=== PATIENT | female | born 1995 | race Caucasian/White ===

== ENCOUNTER 2018-08-07 07:43 | Inpatient (IN) ==
[2018-08-07] MEDS ORDERED: miSOPROStol 25 MCG TABLET VG PRN (07:49)
[2018-08-07] MEDS ORDERED: Famotidine 20 MG/2 ML VIAL IVP PRN (07:49)
[2018-08-07] MEDS ORDERED: Ondansetron 4 MG/2 ML VIAL IVP PRN (07:49)
[2018-08-07] MEDS ORDERED: Naloxone 0.4 MG/ML INJ IVP PRN (07:49)
[2018-08-07] MEDS ORDERED: *HR* Nalbuphine 10 MG/ML AMPUL IVP PRN (07:49)
[2018-08-07] MEDS ORDERED: miSOPROStol 25 MCG TABLET PO SCH (08:00)
[2018-08-07] MEDS ORDERED: Ringers Solution, Lactated 1,000 ML IVC SCH (08:00)
[2018-08-07 08:22] LABS: Basophils % 0.4 %; Eosinophils # 0.1 K/mcL (0.0-0.6); Eosinophils % 1.1 %; Hemoglobin 12.2 g/dL (11.5-15.4); Immature Granulocytes % 0.8 % (0-4); Lymphocytes # 1.1 K/mcL (0.6-4.6); Lymphocytes % 10.8 %; Mean Corpuscular HGB Conc 33.9 g/dL (31.6-35.5); Mean Corpuscular Hemoglobin 29.5 pg (28.0-33.3); Mean Corpuscular Volume 87.2 fL (83.0-100.0); Mean Platelet Volume 10.6 fL (9.4-12.4); Monocytes # 0.6 K/mcL (0.0-1.3); Monocytes % 6.2 %; Neutrophils # 7.8 K/mcL (1.6-8.9); Platelet Count 158 K/mcL (140-400); Red Blood Count 4.13 M/mcL (3.82-4.97); Segmented Neutrophils % 80.7 %
[2018-08-07 08:24] LABS: Amphetamine Screen,Urine Negative ng/mL (Cutoff=1000); Barbiturate Screen,Urine Negative ng/mL (Cutoff=200); Benzodiazepines Screen,Urine Negative ng/mL (Cutoff=200); Cannabinoid Screen,Urine Negative ng/mL (Cutoff = 50); Cocaine Screen,Urine Negative ng/mL (Cutoff= 300); Opiate Screen,Urine Negative ng/mL (Cutoff=300); Phencyclidine Screen,Urine Negative ng/mL (Cutoff=25)
--- NOTE | 2018-08-07 09:28 | OB/GYN History & Physical ---
Date of Encounter: 08/07/18 Time of Encounter: 09:24 Assessment and Plan (1) 39 weeks gestation of Current visit: Yes Status: Acute Admit for elective IOL GBS negative Cytotec Consider AROM and/or pitocin for augmentation Patient may have nubain/epidural upon request for pain control Anticipate vaginal discharge POC per consult with Dr Gary History of Present Illness Chief complaint: IOL HPI: Ms. Ward is a 23 year old at 39 weeks and 0 days that presents to triage for an elective induction of labor with a favorable cervix. She has had a normal course and was seen by the [facility] for her . She states positive movement. She denies headache, vision changes, epigastric pain, leaking of fluid, vaginal bleeding, and contractions Labs: GBS negative RPR NR Hep B Neg Rubella Immune HIV NR BLood type A+ Past Med Surg Social Fam HX - Past Medical History Medical history: migraine Psychiatric history: no psych history - Past Surgical History Additional surgical history: Tonsillectomy, wisdom teeth removal - Social History Smoking Status: Never smoker Smokeless Tobacco Status: No Alcohol use: none Drug use: none - Family History Mother Living Status: Still Living Hx Family Respiratory Disorders: Yes (seasonal allergies) Obstetrical History - Pregnancies : 2 Para: 1 Term: 1 : 0 Ab's: 0 Livin Medications and Allergies Ibuprofen [Motrin] 600 mg PO Q6HR PRN #24 tab 06/18/17 [Rx] Calcium Carbonate [Tums] 1 tab PO PRN PRN 08/07/18 [History] Ondansetron ODT [Zofran ODT] 4 mg SL Q6HR PRN 08/07/18 [History] Multi Tablet 1 tab PO DAILY 08/07/18 [History] 3 Allergy/AdvReac Type Severity Reaction Status Date / Time No Known Allergies Allergy Verified 05/30/18 03:25 Review of System OB All systems PM: reviewed and no additional remarkable complaints except as stated Exam - Constitutional Constitutional: well developed, well nourished, no acute distress, average body habitus - HEENT HEENT: Normocephaly, Mucus Membranes Moist - Lungs Respiratory exam: CTAB - Cardiovascular Cardiovascular exam: RRR, +S1, +S2 - Abdomen Abdomen: Present: bowel sounds normal, gravid, non tender - Extremities Extremities exam: normal capillary refill, normal inspection, radial pulses palpable and symmetrical - Cervix Dilation: 3 Effacement: 80 Station: -2 - Uterus Uterus exam: Present: normal size, normal contour Results Result Diagrams: 08/07/18 07:55 Abnormal lab results RDW 15.0 % (11.5-14.5) H 08/07/18 07:55 All other labs normal. - VTE Reasons for not Prescribing Prophylaxis: Treatment not Indicated - Low risk for VTE
--- NOTE | 2018-08-07 09:35 | Anesthesia Evaluation PreOp ---
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 Any Significant HX Other Medical History: Denies Any Significant HX Anesthesia History: No Prior Anesthetic Complications, Past Anesthesia : Yes (39 weeks, ) Alcohol Use: none Drug use: none Medications and Allergies Ibuprofen [Motrin] 600 mg PO Q6HR PRN #24 tab 06/18/17 [Rx] Calcium Carbonate [Tums] 1 tab PO PRN PRN 08/07/18 [History] Ondansetron ODT [Zofran ODT] 4 mg SL Q6HR PRN 08/07/18 [History] Multi Tablet 1 tab PO DAILY 08/07/18 [History] 3 Allergy/AdvReac Type Severity Reaction Status Date / Time No Known Allergies Allergy Verified 05/30/18 03:25 - Meds/Allergy Pre-op Review Medications Reviewed: Yes Allergies Reviewed: Yes Beta Blockers on Current Med List: No Anesthesia Results - Labs 08/07/18 07:55 Anesthesia Exam O2 Sat Height 1.75 m Height 1.75 m Weight 75.3 kg Weight 75.3 kg Height: 69 Weight: 75 - HEENT Pupil (Motor): Pupils equal Mallampati: II Teeth: Normal Oral Opening: Greater than 3 - STRIKE OFF MACHINE OPERATOR LOC: Oriented STRIKE OFF MACHINE OPERATOR Motor: Normal RUE, Normal LUE, Normal RLE, Normal LLE, Normal Face STRIKE OFF MACHINE OPERATOR Sensory: Normal: RUE, LUE, RLE, LLE, Face - Cardiac Rhythm: Regular Murmur: None JVD: No Carotid Bruit: No - Pulmonary Breath Sounds: bilateral Clear Respiratory Effort: Symmetrical Anesthesia Assess/Plan ASA Score: 2 Modified [place] Scale for Level of Consciousness: Cooperative, oriented, and tranquil Anesthetic Plan: Regional Monitoring Plan: Standard Monitors
[2018-08-07] MEDS ORDERED: Bupivacaine-MPF 0.25% 10 ML VIAL ONE (10:01)
[2018-08-07] MEDS ORDERED: *HR* FentaNYL (PF) 100 MCG/2 ML VIAL ONE (10:01)
[2018-08-07] MEDS ORDERED: Lidocaine -MPF 1% 5 ML AMPUL ONE (10:02)
[2018-08-07] MEDS ORDERED: Epidural Premix (fent/bupiv) 110 ML EP ONE (10:22)
[2018-08-07] MEDS ORDERED: EPHEDrine 50 MG/ML VIAL IVP PRN (10:28)
[2018-08-07] MEDS ORDERED: Bupivacaine-MPF 0.25% 10 ML VIAL EP ONE (10:28)
[2018-08-07] MEDS ORDERED: *HR* FentaNYL (PF) 100 MCG/2 ML VIAL EP ONE (10:28)
[2018-08-07] MEDS ORDERED: Epidural Premix (fent/bupiv) 110 ML EP SCH (10:30)
--- NOTE | 2018-08-07 10:33 | Anesthesia Procedures ---
Date of Encounter: 08/07/18 Time of Encounter: 10:30 Procedures: Anesthesia - Epidural/Spinal Patient ID/Chart reviewed: Yes Patient examined: Yes OB Eval: Gestational age: 39 OB Eval: : 2 OB Eval: Hx Para: 1 OB Eval: Contractions: Non-stressed pattern Consent Obtained: Yes Supplemental Oxygen: None/Room Air Site Prep: Aseptic Technique Patient position: upright Local Anesthetic: Lidocaine 1% Amount of Local Anesthetic used: 3 Touhy Needle Gauge: 18 Touhy Needle Depth (cm): 4 Test Dose (1.5% Lido + Epi): Volume given (mls): 3 Test Dose Result: Negative Loading Dose: 0.25% Marcaine (mls): 1 Loading Dose: Fentanyl (mcg): 25 Infusion Med: 0.125% Bupivacaine w/ 2 mcg/ml Fentanyl Infusion Rate (mls/hr): [address]: Tegaderm Interspace Used: L3-L4 Loss of Resistance (VILMA): Yes Blood: No Procedure: CSEA L3-4 x 1 attempt aseptically. 27 g pencil point thru epidural needle, distinct pop felt and CSF clear. 25mcg fentanyl and 1cc 0.25% bupivicaine thru spinal needle prior to removing and inserting epidural cathetar to 10cm. Test dose negative through catheter and gtt started at 14cc/hr. FHR unchanged post procedure.
[2018-08-07] MEDS ORDERED: 0.9 % Sodium Chloride 1,000 ML ONE (13:48)
--- NOTE | 2018-08-07 14:04 | OB Labor Progress Note ---
Date of Encounter: 08/07/18 Time of Encounter: 14:02 Labor Progress Note - Subjective Subjective: Patient is resting comfortably in bed. Pain is well controlled with epidural. FHR - variables with each contraction noted. - Vital Signs Vital Signs: VSS - Cervix Cervix: 4-5/80/-2 - Heart Tones Heart Tones: Baseline 130 with moderate variability and variables with each contraction; category II - [place]: Contractions every 2-3 minutes lasting 45-65 seconds - Interventions Interventions: AROM for moderate amount of clear fluid, IUPC, and FSE placed without difficulty. Amnioinfusion started with 500cc bolus. Patient and fetus tolerated well. - Plan Plan: Continue routine labor management GBS negative Continue amnioinfusion Consider discontinuing amnioinfusion after return to category I tracing Anticipate vaginal delivery POC per consult with Dr Gary; discussed category II tracing with Dr Gary
[2018-08-07] MEDS ORDERED: Terbutaline 1 MG/ML VIAL SQ ONE (15:24)
[2018-08-07] MEDS ORDERED: Oxytocin 20 units/ LR 1000 mL 20 UNIT/1,000 ML BAG IVC ONE ×2 (15:29→19:37)
--- NOTE | 2018-08-07 17:16 | Event Note ---
Date of Encounter: 08/07/18 Time of Encounter: 15:45 Category II tracing noted not resolved with intrauterine resuscitation; terbutaline given - Dr Gary called to bedside to evaluate. Cervical massage initiated.
--- NOTE | 2018-08-07 17:19 | OB/GYN Procedure Note ---
Delivery - Delivery Date: 08/07/18 Provider: Kayla Juárez Intrapartum events: none Delivery induction: misoprostol Delivery augmentation: rupture of membranes Delivery monitor: external FHT, external uterine, internal FHT, internal uterine Anesthesia: epidural Quantitated Blood Loss: 350 - (s) Infant A Infant Delivery Date: 08/07/18 Infant Delivery Time: 16:24 Presentation: vertex Position: ANNELISE Route of delivery: Gender: Male Viability: Viable Pounds: 7 Ounces: 1 Weight Gram: 3.21 kg at 1 minute: 8 at 5 mins: 9 Shoulder Dystocia: not encountered Specimens collected: cord blood Placenta: spontaneous Cord: 3 umbilical vessels, nuchal cut, delivered through nuchal - Repair Episiotomy: none Laceration Description: Superficial - Complications Delivery complications: none Delivery comments: Patient progressed to of viable, vigorous male infant in the NIKOS position. Loose nuchal cord encountered, delivered through. No meconium, no shoulder dystocia encountered. Infant placed on maternal abdomen, warmed, dried, and stimulated. Cord double clamped and cut after pulsations ceased with assistance of grandmother of baby. Placenta delivered spontaneously and appears grossly intact; 3 vessel cord. Upon perineal inspection, bilateral superficial labial lacerations noted. Left labial laceration was not hemostatic as the other lacerations were, figure of 8 used to provide hemostasis to both apexes of laceration. 3-0 monocryl used. Fundus firm at U/ 2 with scant bleeding after repair completed. EBL 350mL. Delivery assisted by Faye Cerda DO, PGY-1. Dr Gary notified of delivery. Mother and stable in recovery. - Disposition Mom disposition: stable in LDR [place] disposition: stable in LDR
[2018-08-07] MEDS ORDERED: Acetaminophen 325 MG TABLET PO PRN (19:37)
[2018-08-07] MEDS ORDERED: Oxytocin 20 units/ LR 1000 mL 20 UNIT/1,000 ML BAG IVC SCH (19:37)
[2018-08-07] MEDS ORDERED: Benzocaine/Menthol 56 GM AEROSOL SPRAY TP PRN (19:37)
[2018-08-07] MEDS ORDERED: Measles/Mumps/Rubella Vacc 0.5 ML VIAL SQ PRN (19:37)
[2018-08-07] MEDS ORDERED: Ondansetron ODT 4 MG TAB.RAPDIS SL PRN (19:37)
[2018-08-07] MEDS: Ibuprofen 600 MG TABLET PO PRN (20:07)
[2018-08-08 04:36] LABS: Basophils % 0.3 %; Eosinophils # 0.1 K/mcL (0.0-0.6); Eosinophils % 1.1 %; Hematocrit 28.8 % (35.3-44.9); Hemoglobin 9.7 g/dL (11.5-15.4); Immature Granulocytes % 0.7 % (0-4); Lymphocytes # 1.3 K/mcL (0.6-4.6); Mean Corpuscular HGB Conc 33.7 g/dL (31.6-35.5); Mean Corpuscular Hemoglobin 29.7 pg (28.0-33.3); Mean Corpuscular Volume 88.1 fL (83.0-100.0); Mean Platelet Volume 10.7 fL (9.4-12.4); Monocytes # 1.1 K/mcL (0.0-1.3); Monocytes % 8.7 %; Neutrophils # 9.4 K/mcL (1.6-8.9); Platelet Count 139 K/mcL (140-400); Red Blood Count 3.27 M/mcL (3.82-4.97); Red Cell Distribution Width 14.9 % (11.5-14.5); Segmented Neutrophils % 78.2 %
[2018-08-08] MEDS: Ibuprofen 600 MG TABLET PO PRN ×2 (05:35→17:22)
[2018-08-08] MEDS ORDERED: Prenatal Vit/FA 1 EACH TABLET PO SCH (09:00)
--- NOTE | 2018-08-08 09:32 | Discharge Summary ---
Date of Encounter: 08/08/18 Time of Encounter: 09:26 - Discharge Diagnosis (1) Vaginal delivery Priority: Primary Status: Acute Comments: Feeling well Pain well controlled with by mouth pain meds Tolerating regular diet Voiding independently Lochia light Passing flatus, no BM yet Ambulating independently Vital signs stable Discharge home today (2) anemia Priority: Secondary Status: Acute Comments: Continue iron supplementation daily for 3 months (3) Breast feeding status of mother Priority: Secondary Status: Acute Comments: Community resources provided - Discharge Medications Prescriptions: Ibuprofen [Motrin] 600 mg PO Q6HR PRN #30 tablet PRN Reason: Cramping Docusate [Colace] 100 mg PO BID #60 capsule Ferrous Sulfate 325 mg PO DAILY #30 tablet Home Medications: Multi Tablet 1 tab PO DAILY 08/07/18 [History] Acetaminophen [Tylenol] 650 mg PO Q6HR PRN tablet 08/08/18 [Rx] Benzocaine/Menthol Lindsay [Dermoplast Lindsay] 1 appl TP QID PRN aerosol 08/08/18 [Rx] Docusate [Colace] 100 mg PO BID #60 capsule 08/08/18 [Rx] Ferrous Sulfate 325 mg PO DAILY #30 tablet 08/08/18 [Rx] Ibuprofen [Motrin] 600 mg PO Q6HR PRN #30 tablet 08/08/18 [Rx] Allergies/Adverse Reactions: 3 Allergy/AdvReac Type Severity Reaction Status Date / Time No Known Allergies Allergy Verified 05/30/18 03:25 Data Procedures and tests throughout hospitalization: Laboratory Tests 08/07/18 08/07/18 08/08/18 07:55 08:02 04:13 WBC 9.7 12.0 H RBC 4.13 3.27 L Hgb 12.2 9.7 L D Hct 36.0 28.8 L MCV 87.2 88.1 MCH 29.5 29.7 MCHC 33.9 33.7 RDW 15.0 H 14.9 H Plt Count 158 139 L MPV 10.6 10.7 Immature Gran % 0.8 0.7 Seg Neutrophils % 80.7 78.2 Lymphocytes % 10.8 11.0 Monocytes % 6.2 8.7 Eosinophils % 1.1 1.1 Basophils % 0.4 0.3 Neutrophils # 7.8 9.4 H Lymphocytes # 1.1 1.3 Monocytes # 0.6 1.1 Eosinophils # 0.1 0.1 Basophils # 0.0 0.0 Urine Opiates Screen Negative Ur Barbiturates Screen Negative Ur Phencyclidine Scrn Negative Ur Amphetamines Screen Negative U Benzodiazepines Scrn Negative Urine Cocaine Screen Negative U Marijuana (THC) Screen Negative Ur Drug Screen Interp See Below Labs on day of discharge: Labs from last 24 hours 08/08/18 04:13 WBC 12.0 H RBC 3.27 L Hgb 9.7 L D Hct 28.8 L MCV 88.1 MCH 29.7 MCHC 33.7 RDW 14.9 H Plt Count 139 L MPV 10.7 Immature Gran % 0.7 Seg Neutrophils % 78.2 Lymphocytes % 11.0 Monocytes % 8.7 Eosinophils % 1.1 Basophils % 0.3 Neutrophils # 9.4 H Lymphocytes # 1.3 Monocytes # 1.1 Eosinophils # 0.1 Basophils # 0.0 Date of admission: 08/07/18 07:43 Primary care physician: Nevaeh Cisse Consults: 08/07/18 19:37 Consult to Fitting Room Inspector [CONS] Routine Comment: Vaginal delivery, consult needed Discharging clinician: Kayla Trevino Anticipated date of discharge: 08/08/18 - Patient Status Disposition: Home, Self-Care Condition: Good Functional capacity at discharge: independent ambulation Overall status at discharge: patient is progressing back to baseline - Discharge Instructions Follow Up With: Nevaeh Cisse MD [Primary Care Provider] - Kayla Juárez CNM [Advanced Practice Nurse] - - Diet and Activity Activity: increase activity as tolerated Diet: regular diet Hospital Course Procedures: Reason for admission: induction of labor, IUP at term Delivery: Episiotomy: none Laceration: other (bilateral labial) Other procedures: none complications: none Discharge diagnosis: IUP at term delivered [place] baby: male Hospital course: Patient admitted for elective IOL. She progressed without incident to complete and delivered a viable male . Bilateral labial lacerations were repaired. course has been uncomplicated. She will be discharged home with appropriate medications. Time Attestation: Total time spent providing and/or coordinating discharge services: Time Spent: Less than 30 minutes Exam - Constitutional Vitals: Temp Pulse Resp BP Pulse Ox 97.8 F 71 16 105/63 100 08/08/18 07:53 08/08/18 07:53 08/08/18 07:53 08/08/18 07:53 08/08/18 07:53 General appearance IM: A&O X 3 - Respiratory Respiratory exam: Present: CTAB - Cardiovascular Cardiovascular exam IM: Present: RRR, +S1, +S2 - GI/Abdominal GI/Abdominal exam IM: normal bowel sounds, no peritoneal signs - Rectal Rectal exam: deferred - Uterine Tone: Firm Uterus Position: 2 Fingers Below Umbilicus, Midline - Extremities Exam Extremities exam IM: Present: normal capillary refill, normal inspection, radial pulses palpable and symmetrical - Neurological Exam Neurological exam: alert, CN II-XII intact, normal gait, oriented X3, reflexes normal, no focal deficits, strengths equal and symetr throughout - Psychiatric Additional comments: Patient reports remote history of depression. Signs and symptoms of depression discussed with patient and she verbalizes understanding of when to seek help. - Skin Additional comments: Breasts: Nipples intact without erythema; soft, nontender
[2018-08-08 14:35] VITALS: BP 104/65
== END 2018-08-08 19:10 | disposition home or self-care (01) | DRG 560 ==
LOC: 1NENULAB 07:43 → 1NENUOBS 20:09
PROVIDERS: ADMIT Advanced Practice Midwife; ATTEND Advanced Practice Midwife

== ENCOUNTER → 2020-05-01 20:00 | Observation (INO) ==
[2020-05-01 17:31] LABS: Basophils % 0.5 %; Eosinophils # 0.2 K/mcL (0.0-0.6); Eosinophils % 1.9 %; Hemoglobin 12.2 g/dL (11.5-15.4); Immature Granulocytes % 0.6 % (0-4); Lymphocytes # 1.4 K/mcL (0.6-4.6); Lymphocytes % 15.8 %; Mean Corpuscular Volume 93.9 fL (83.0-100.0); Mean Platelet Volume 12.1 fL (9.4-12.4); Monocytes # 0.7 K/mcL (0.0-1.3); Monocytes % 7.8 %; Neutrophils # 6.5 K/mcL (1.6-8.9); Platelet Count 205 K/mcL (140-400); Red Blood Count 3.94 M/mcL (3.82-4.97); Segmented Neutrophils % 73.4 %; White Blood Count 8.9 K/mcL (4.3-11.1)
[~2020-05-01 20:00] MED LIST: Ringers Solution, Lactated 1,000 ML IVC ONE; Ringers Solution, Lactated 1,000 ML IVC SCH; Ringers Solution, Lactated 1,000 ML ONE
== END | disposition home or self-care (01) ==
LOC: 1NENULAB
PROVIDERS: ADMIT Obstetrics & Gynecology; ATTEND Obstetrics & Gynecology

== ENCOUNTER 2020-07-07 11:19 | Inpatient (IN) ==
[2020-07-07] MEDS ORDERED: Metoclopramide 10 MG/2 ML VIAL IVP PRN (12:10)
[2020-07-07] MEDS ORDERED: Azithromycin 500 MG in 0.9 % Sodium Chloride 250 ML IVPB ONE (12:10)
[2020-07-07] MEDS ORDERED: Famotidine 20 MG/2 ML VIAL IVP PRN (12:10)
[2020-07-07] MEDS ORDERED: Naloxone 0.4 MG/ML INJ IVP PRN (12:10)
[2020-07-07] MEDS ORDERED: Ondansetron 4 MG/2 ML VIAL IVP PRN (12:10)
[2020-07-07] MEDS ORDERED: Penicillin G Potassium 5,000,000 UNIT in 0.9 % Sodium Chloride Mini Bag 100 ML IVPB ONE (12:53)
[2020-07-07] MEDS: Ringers Solution, Lactated 1,000 ML IVC SCH ×2 (13:18→18:27)
[2020-07-07] MEDS ORDERED: miSOPROStoL 25 MCG TABLET PO PRN (14:06)
[2020-07-07 14:46] LABS: Amphetamine Screen,Urine Negative ng/mL (Cutoff=1000); Barbiturate Screen,Urine Negative ng/mL (Cutoff=200); Benzodiazepines Screen,Urine Negative ng/mL (Cutoff=200); Cannabinoid Screen,Urine Negative ng/mL (Cutoff = 50); Cocaine Screen,Urine Negative ng/mL (Cutoff= 300); Opiate Screen,Urine Negative ng/mL (Cutoff=300); Phencyclidine Screen,Urine Negative ng/mL (Cutoff=25)
[2020-07-07] MEDS ORDERED: Penicillin G Potassium 2,500,000 UNIT/105 ML MLS IVPB SCH (16:00)
[2020-07-07 16:07] LABS: Basophils % 0.4 %; Eosinophils # 0.1 K/mcL (0.0-0.6); Eosinophils % 0.7 %; Hematocrit 39.2 % (35.3-44.9); Hemoglobin 12.8 g/dL (11.5-15.4); Immature Granulocytes % 0.4 % (0-4); Lymphocytes # 1.1 K/mcL (0.6-4.6); Lymphocytes % 13.5 %; Mean Corpuscular HGB Conc 32.7 g/dL (31.6-35.5); Mean Corpuscular Volume 91.8 fL (83.0-100.0); Mean Platelet Volume 11.2 fL (9.4-12.4); Monocytes # 0.5 K/mcL (0.0-1.3); Monocytes % 6.4 %; Neutrophils # 6.4 K/mcL (1.6-8.9); Platelet Count 167 K/mcL (140-400); Red Blood Count 4.27 M/mcL (3.82-4.97); Red Cell Distribution Width 18.4 % (11.5-14.5); Segmented Neutrophils % 78.6 %; White Blood Count 8.1 K/mcL (4.3-11.1)
[2020-07-07] MEDS ORDERED: EPHEDrine 50 MG/ML VIAL IVP PRN (18:30)
[2020-07-07] MEDS ORDERED: Epidural Premix (fent/bupiv) 110 ML EP SCH (18:30)
[2020-07-07] MEDS ORDERED: *HR* FentaNYL (PF) 100 MCG/2 ML VIAL EP ONE (18:30)
[2020-07-07] MEDS ORDERED: Ropivacaine/PF 0.2% 20 ML VIAL EP ONE (18:30)
[2020-07-07] MEDS ORDERED: Ropivacaine/PF 0.2% 20 ML VIAL ONE (18:37)
[2020-07-07] MEDS ORDERED: *HR* FentaNYL (PF) 100 MCG/2 ML VIAL ONE (18:37)
[2020-07-07 18:57] LABS: Alanine Aminotransferase 14 Units/L (7-52); Aspartate Amino Transferase 17 Units/L (13-39); BUN/Creatinine Ratio 15 (6-26); Blood Urea Nitrogen 9 mg/dL (6-20); Lactate Dehydrogenase 147 Units/L (140-271); Uric Acid 5.8 mg/dL (2.3-7.6); eGFR For African Americans > 60 (> 60); eGFR For Non-African Americans > 60 (> 60)
[2020-07-07] MEDS ORDERED: Oxytocin 20 units/ LR 1000 mL 20 UNIT/1,000 ML BAG IVC SCH ×2 (19:45→22:46)
[2020-07-07] MEDS ORDERED: Lanolin 7 G OINT...G. TP PRN (22:46)
[2020-07-07] MEDS ORDERED: Benzocaine/Menthol 56 GM AEROSOL SPRAY TP PRN (22:46)
[2020-07-07] MEDS ORDERED: Acetaminophen 325 MG TABLET PO PRN (22:46)
[2020-07-08] MEDS: Ibuprofen 600 MG TABLET PO PRN ×3 (00:05→19:52)
[2020-07-08 08:04] LABS: Basophils % 0.4 %; Eosinophils # 0.1 K/mcL (0.0-0.6); Eosinophils % 1.6 %; Hematocrit 35.6 % (35.3-44.9); Hemoglobin 11.9 g/dL (11.5-15.4); Immature Granulocytes % 0.2 % (0-4); Lymphocytes # 1.3 K/mcL (0.6-4.6); Lymphocytes % 16.4 %; Mean Corpuscular HGB Conc 33.4 g/dL (31.6-35.5); Mean Corpuscular Hemoglobin 31.3 pg (28.0-33.3); Mean Corpuscular Volume 93.7 fL (83.0-100.0); Mean Platelet Volume 11.7 fL (9.4-12.4); Monocytes # 0.6 K/mcL (0.0-1.3); Monocytes % 7.7 %; Neutrophils # 5.9 K/mcL (1.6-8.9); Platelet Count 136 K/mcL (140-400); Red Cell Distribution Width 18.4 % (11.5-14.5); Segmented Neutrophils % 73.7 %; White Blood Count 8.1 K/mcL (4.3-11.1)
[2020-07-08] MEDS: Prenatal Vit/FA 1 EACH TABLET PO SCH (09:08)
[2020-07-09] MEDS: Ibuprofen 600 MG TABLET PO PRN (09:13)
[2020-07-09] MEDS: Prenatal Vit/FA 1 EACH TABLET PO SCH (09:14)
[2020-07-09 09:33] VITALS: BP 124/78
== END 2020-07-09 11:33 | disposition home or self-care (01) | DRG 560 ==
LOC: 1NENULAB 11:19 → 1NENUOBS 22:46
PROVIDERS: ADMIT Obstetrics & Gynecology; ATTEND Obstetrics & Gynecology

== ENCOUNTER → 2021-11-12 00:36 | Observation (INO) ==
[2021-11-11 22:12] LABS: Bacteria,Urine Few per hpf (None-Few); Bilirubin,Urine Negative (Negative); Blood,Urine Negative (Negative); Clarity,Urine Turbid (Clear); Color,Urine Yellow (Yellow); Glucose,Urine (UA) Normal (Normal); Ketones,Urine Negative (Negative); Leukocyte Esterase,Urine Large (Negative); Mucus,Urine Few per lpf (None-Few); Nitrite,Urine Negative (Negative); Protein,Urine 30 mg/dL (Neg-Trace); Specific Gravity,Urine 1.024 (1.010-1.025); Squamous Epithelial Cell,Urine Moderate per hpf (None-Few); Urobilinogen,Urine Normal (Normal); WBC,Urine TNTC per hpf (0-3)
[2021-11-11 22:54] LABS: Basophils % 0.2 %; Eosinophils # 0.1 K/mcL (0.0-0.6); Eosinophils % 1.7 %; Hematocrit 33.8 % (35.3-44.9); Hemoglobin 11.1 g/dL (11.5-15.4); Immature Granulocytes % 1.1 % (0-4); Lymphocytes # 1.1 K/mcL (0.6-4.6); Mean Corpuscular HGB Conc 32.8 g/dL (31.6-35.5); Mean Corpuscular Hemoglobin 29.9 pg (28.0-33.3); Mean Corpuscular Volume 91.1 fL (83.0-100.0); Mean Platelet Volume 9.3 fL (9.4-12.4); Monocytes # 0.7 K/mcL (0.0-1.3); Monocytes % 8.3 %; Neutrophils # 6.1 K/mcL (1.6-8.9); Platelet Count 251 K/mcL (140-400); Red Blood Count 3.71 M/mcL (3.82-4.97); Red Cell Distribution Width 14.1 % (11.5-14.5); Segmented Neutrophils % 74.7 %; White Blood Count 8.1 K/mcL (4.3-11.1)
[2021-11-11 23:15] LABS: Potassium 3.7 mEq/L (3.5-5.1)
[2021-11-11 23:45] LABS: Candida DNA DETECTED (Not Detect); Gardnerella DNA Not Detected (Not Detect); Trichomonas DNA Not Detected (Not Detect)
[~2021-11-12 00:36] MED LIST changes: +*HR* Nalbuphine 10 MG/ML AMPUL IV PRN; -Ringers Solution, Lactated 1,000 ML IVC SCH
== END | disposition home or self-care (01) ==
LOC: 1NENULAB
PROVIDERS: ADMIT Advanced Practice Midwife; ATTEND Advanced Practice Midwife

== ENCOUNTER 2021-11-29 17:03 | Observation (INO) ==
[2021-11-29 14:10] LABS: Hematocrit 32.6 % (35.3-44.9); Hemoglobin 10.9 g/dL (11.5-15.4); Mean Corpuscular HGB Conc 33.4 g/dL (31.6-35.5); Mean Corpuscular Volume 89.8 fL (83.0-100.0); Mean Platelet Volume 10.3 fL (9.4-12.4); Platelet Count 177 K/mcL (140-400); Red Blood Count 3.63 M/mcL (3.82-4.97); White Blood Count 12.8 K/mcL (4.3-11.1)
[2021-11-29 16:02] LABS: Bacteria,Urine Few per hpf (None-Few); Bilirubin,Urine Negative (Negative); Blood,Urine Small (Negative); Clarity,Urine Turbid (Clear); Color,Urine Yellow (Yellow); Glucose,Urine (UA) Normal (Normal); Ketones,Urine Trace mg/dL (Negative); Leukocyte Esterase,Urine Large (Negative); Mucus,Urine Many per lpf (None-Few); Nitrite,Urine Positive (Negative); Protein,Urine 70 mg/dL (Neg-Trace); Specific Gravity,Urine 1.024 (1.010-1.025); Squamous Epithelial Cell,Urine Few per hpf (None-Few); Transitional Epi Cells,Urine Few per hpf (None-Few); WBC,Urine TNTC per hpf (0-3)
[~2021-11-29 17:03] MED LIST changes: -*HR* Nalbuphine 10 MG/ML AMPUL IV PRN; +Ondansetron 4 MG/2 ML VIAL IVP ONE; +cefTRIAXone 2,000 MG in 0.9 % Sodium Chloride Mini Bag 100 ML IVPB ONE
[2021-11-29] MEDS ORDERED: Ondansetron 4 MG/2 ML VIAL IVP PRN (17:06)
[2021-11-29] MEDS: *HR* HYDROcodone/Acet 5/325 mg TABLET PO PRN (18:22)
[2021-11-29] MEDS: Acetaminophen 325 MG TABLET PO PRN (20:23)
[2021-11-30] MEDS: Ringers Solution, Lactated 1,000 ML IVC SCH ×2 (00:09→20:35)
[2021-11-30] MEDS: *HR* HYDROcodone/Acet 5/325 mg TABLET PO PRN ×3 (00:11→22:43)
[2021-11-30 02:02] LABS: Basophils % 0.2 %; Eosinophils % 0.2 %; Hematocrit 27.7 % (35.3-44.9); Immature Granulocytes % 0.6 % (0-4); Lymphocytes # 0.9 K/mcL (0.6-4.6); Lymphocytes % 7.4 %; Mean Corpuscular HGB Conc 32.5 g/dL (31.6-35.5); Mean Corpuscular Hemoglobin 29.2 pg (28.0-33.3); Mean Corpuscular Volume 89.9 fL (83.0-100.0); Mean Platelet Volume 10.1 fL (9.4-12.4); Monocytes # 1.2 K/mcL (0.0-1.3); Monocytes % 9.3 %; Neutrophils # 10.4 K/mcL (1.6-8.9); Platelet Count 154 K/mcL (140-400); Red Blood Count 3.08 M/mcL (3.82-4.97); Red Cell Distribution Width 15.2 % (11.5-14.5); Segmented Neutrophils % 82.3 %; White Blood Count 12.6 K/mcL (4.3-11.1)
[2021-11-30 02:20] LABS: Alanine Aminotransferase 6 Units/L (7-52); Albumin 2.9 g/dL (3.5-5.7); Albumin/Globulin Ratio 1.2 (1.1-2.2); Alkaline Phosphatase 88 Units/L (34-104); Aspartate Amino Transferase 9 Units/L (13-39); BUN/Creatinine Ratio 7 (6-26); Bilirubin,Total 0.9 mg/dL (0.3-1.0); Blood Urea Nitrogen 3 mg/dL (6-20); Calcium 7.8 mg/dL (8.6-10.3); Carbon Dioxide 19 mEq/L (23-29); Chloride 105 mEq/L (98-107); Globulin 2.5 g/dL (2.4-3.5); Glucose 95 mg/dL (70-105); Osmolality,Calculated 274 (280-300); Potassium 3.2 mEq/L (3.5-5.1); Sodium 134 mEq/L (136-145); Total Protein 5.4 g/dL (6.4-8.9); eGFR For African Americans > 60 (> 60); eGFR For Non-African Americans > 60 (> 60)
[2021-11-30] MEDS ORDERED: cefTRIAXone 1,000 MG in 0.9 % Sodium Chloride Mini Bag 100 ML IVPB SCH ×2 (04:00→20:00)
[2021-11-30] MEDS: Acetaminophen 325 MG TABLET PO PRN ×3 (05:44→22:44)
[2021-11-30] MEDS: Prenatal Vit/FA 1 EACH TABLET PO SCH (08:42)
[2021-11-30] MEDS ORDERED: Ringers Solution, Lactated 1,000 ML IVC ONE (17:33)
[2021-11-30] MEDS: cefTRIAXone 1,000 MG in 0.9 % Sodium Chloride Mini Bag 100 ML IVPB SCH (19:52)
[2021-12-01] MEDS: Ringers Solution, Lactated 1,000 ML IVC SCH (04:40)
[2021-12-01] MEDS: Acetaminophen 325 MG TABLET PO PRN (04:40)
[2021-12-01 06:51] VITALS: BP 92/46; PULSE 89; O2SAT 98
[2021-12-01] MEDS: cefTRIAXone 1,000 MG in 0.9 % Sodium Chloride Mini Bag 100 ML IVPB SCH (07:52)
[2021-12-01] MEDS: Prenatal Vit/FA 1 EACH TABLET PO SCH (07:53)
[2021-12-01 08:08] VITALS: TEMP 97.7
[2021-12-01] MEDS ORDERED: Prenatal Vit/FA 1 EACH TABLET PO SCH (09:00)
== END 2021-12-01 12:44 | disposition home or self-care (01) ==
LOC: 1NENULAB → 1NENUOBS 17:03
PROVIDERS: ADMIT Registered Nurse; ATTEND Registered Nurse

== ENCOUNTER 2022-01-09 14:32 | Observation (INO) ==
[2022-01-09] MEDS ORDERED: Ringers Solution, Lactated 1,000 ML ONE (15:19)
[2022-01-09] MEDS ORDERED: Ringers Solution, Lactated 1,000 ML IVC ONE (15:24)
[2022-01-09] MEDS ORDERED: Acetaminophen 325 MG TABLET PO ONE (15:38)
[2022-01-09 15:39] LABS: Bacteria,Urine Few per hpf (None-Few); Bilirubin,Urine Negative (Negative); Blood,Urine Negative (Negative); Clarity,Urine Turbid (Clear); Color,Urine Yellow (Yellow); Glucose,Urine (UA) Normal (Normal); Ketones,Urine 10 mg/dL (Negative); Leukocyte Esterase,Urine Large (Negative); Mucus,Urine Few per lpf (None-Few); Nitrite,Urine Negative (Negative); Protein,Urine Trace mg/dL (Neg-Trace); RBC,Urine 0-3 per hpf (0-3); Specific Gravity,Urine 1.016 (1.010-1.025); Squamous Epithelial Cell,Urine Moderate per hpf (None-Few); Urobilinogen,Urine Normal (Normal)
[2022-01-09] MEDS ORDERED: Ondansetron 4 MG/2 ML VIAL IVP PRN (15:39)
[2022-01-09 15:44] LABS: Basophils # 0.1 K/mcL (0.0-0.2); Basophils % 0.6 %; Eosinophils % 0.1 %; Hematocrit 33.1 % (35.3-44.9); Hemoglobin 10.8 g/dL (11.5-15.4); Immature Granulocytes % 2.5 % (0-4); Lymphocytes # 0.5 K/mcL (0.6-4.6); Lymphocytes % 4.7 %; Mean Corpuscular HGB Conc 32.6 g/dL (31.6-35.5); Mean Corpuscular Volume 88.7 fL (83.0-100.0); Monocytes # 1.2 K/mcL (0.0-1.3); Monocytes % 11.2 %; Neutrophils # 8.7 K/mcL (1.6-8.9); Nucleated Red Blood Cells 0.7 /100 WBC (0); Platelet Count 187 K/mcL (140-400); Red Blood Count 3.73 M/mcL (3.82-4.97); Red Cell Distribution Width 17.4 % (11.5-14.5); Segmented Neutrophils % 80.9 %; White Blood Count 10.8 K/mcL (4.3-11.1)
[2022-01-09] MEDS: Ringers Solution, Lactated 1,000 ML IVC SCH ×2 (16:27→20:30)
[2022-01-09 17:20] LABS: Candida DNA DETECTED (Not Detect); Gardnerella DNA Not Detected (Not Detect); Trichomonas DNA Not Detected (Not Detect)
[2022-01-09 17:39] LABS: Adenovirus Not Detected (Not Detect); Bordetella Pertussis Not Detected (Not Detect); Chlamydophila pneumoniae Not Detected (Not Detect); Coronavirus 229E Not Detected (Not Detect); Coronavirus HKU1 Not Detected (Not Detect); Coronavirus NL63 Not Detected (Not Detect); Coronavirus OC43 Not Detected (Not Detect); Human Metapneumovirus Not Detected (Not Detect); Human Rhinovirus/Enterovirus Not Detected (Not Detect); Influenza A Subtype 2009 H1 Not Detected (Not Detect); Influenza B Not Detected (Not Detect); Mycoplasma pneumoniae Not Detected (Not Detect); Parainfluenza Virus 1 Not Detected (Not Detect); Parainfluenza Virus 2 Not Detected (Not Detect); Parainfluenza Virus 3 Not Detected (Not Detect); Parainfluenza Virus 4 Not Detected (Not Detect); Respiratory Syncytial Virus Not Detected (Not Detect); SARS-CoV-2 Not Detected (Not Detect)
[2022-01-09] MEDS ORDERED: Penicillin G Potassium 5,000,000 UNIT in 0.9 % Sodium Chloride Mini Bag 100 ML IVPB ONE (18:30)
[2022-01-09] MEDS ORDERED: Penicillin G Potassium 2,500,000 UNIT/105 ML MLS IVPB SCH (22:30)
== END 2022-01-10 00:38 | disposition home or self-care (01) ==
LOC: 1NENULAB
PROVIDERS: ADMIT Advanced Practice Midwife; ATTEND Advanced Practice Midwife

== ENCOUNTER 2022-02-07 10:57 | Inpatient (IN) ==
[2022-02-07] MEDS ORDERED: Naloxone 0.4 MG/ML INJ IVP PRN ×2 (10:58→11:15)
[2022-02-07] MEDS ORDERED: Famotidine 20 MG/2 ML VIAL IVP PRN (10:58)
[2022-02-07] MEDS ORDERED: Metoclopramide 10 MG/2 ML VIAL IVP PRN (10:58)
[2022-02-07] MEDS ORDERED: Ringers Solution, Lactated 1,000 ML IVC SCH (11:00)
[2022-02-07] MEDS ORDERED: Ondansetron 4 MG/2 ML VIAL IVP PRN (11:15)
[2022-02-07] MEDS ORDERED: EPHEDrine 50 MG/ML VIAL IVP PRN (11:15)
[2022-02-07] MEDS ORDERED: Epidural Premix (fent/bupiv) 110 ML EP SCH (11:15)
[2022-02-07] MEDS ORDERED: *HR* FentaNYL (PF) 100 MCG/2 ML VIAL EP ONE (11:15)
[2022-02-07] MEDS ORDERED: Ropivacaine/PF 0.2% 20 ML VIAL EP ONE (11:15)
[2022-02-07 11:21] LABS: Basophils # 0.1 K/mcL (0.0-0.2); Basophils % 0.4 %; Eosinophils # 0.1 K/mcL (0.0-0.6); Eosinophils % 1.1 %; Hematocrit 39.1 % (35.3-44.9); Hemoglobin 12.5 g/dL (11.5-15.4); Immature Granulocytes % 1.2 % (0-4); Lymphocytes % 15.9 %; Mean Corpuscular Hemoglobin 27.5 pg (28.0-33.3); Mean Corpuscular Volume 85.9 fL (83.0-100.0); Mean Platelet Volume 10.6 fL (9.4-12.4); Monocytes # 0.9 K/mcL (0.0-1.3); Monocytes % 6.9 %; Neutrophils # 9.6 K/mcL (1.6-8.9); Platelet Count 196 K/mcL (140-400); Red Blood Count 4.55 M/mcL (3.82-4.97); Red Cell Distribution Width 17.5 % (11.5-14.5); Segmented Neutrophils % 74.5 %; White Blood Count 12.8 K/mcL (4.3-11.1)
[2022-02-07] MEDS ORDERED: Epidural Premix (fent/bupiv) 110 ML EP ONE (11:26)
[2022-02-07 12:03] LABS: Influenza A PCR Negative (Negative); Influenza B PCR Negative (Negative); Resp. Syncytial Virus PCR Negative (Negative)
[2022-02-07 12:04] LABS: SARS-CoV-2 by PCR (In House) Negative (Negative)
[2022-02-07] MEDS ORDERED: Oxytocin 30 UNIT/503 ML BAG IVC ONE (12:05)
[2022-02-07] MEDS ORDERED: Ibuprofen 600 MG TABLET PO ONE (12:49)
[2022-02-07] MEDS ORDERED: Oxytocin 30 UNIT/503 ML BAG IVC SCH (15:29)
[2022-02-07] MEDS ORDERED: Benzocaine/Menthol 56 GM AEROSOL SPRAY TP PRN (15:29)
[2022-02-07] MEDS ORDERED: *HR* OxyCODONE Immed Rel 5 MG TABLET PO PRN (15:29)
[2022-02-07] MEDS ORDERED: Ondansetron ODT 4 MG TAB.RAPDIS SL PRN (15:29)
[2022-02-07] MEDS ORDERED: Lanolin 7 G OINT...G. TP PRN (15:29)
[2022-02-07] MEDS: Ibuprofen 600 MG TABLET PO SCH (19:15)
[2022-02-07] MEDS: Acetaminophen 325 MG TABLET PO SCH (19:15)
[2022-02-08] MEDS: Acetaminophen 325 MG TABLET PO SCH ×2 (00:31→06:47)
[2022-02-08 04:27] VITALS: O2SAT 100
[2022-02-08] MEDS: Ibuprofen 600 MG TABLET PO SCH (06:47)
[2022-02-08 07:12] VITALS: BP 118/64; PULSE 65; TEMP 97.6
[2022-02-08] MEDS: Prenatal Vit/FA 1 EACH TABLET PO SCH ×2 (08:18→08:19)
== END 2022-02-08 13:33 | disposition home or self-care (01) | DRG 560 ==
LOC: 1NENULAB 10:57 → 1NENUOBS 15:29
PROVIDERS: ADMIT Advanced Practice Midwife; ATTEND Advanced Practice Midwife